=== PATIENT | female | born 1930 | race Caucasian/White ===

== ENCOUNTER 2019-06-16 16:37 | Emergency (ER) | payer MEDICARE, OTHER ==
[2019-06-16 16:56] VITALS: BP 142/71
[2019-06-16] MEDS ORDERED: IV NORMAL SALINE 500ML 500 ML IV ONE (17:00)
--- NOTE | 2019-06-16 17:07 | PHYS DOC ---
Past History Past Medical History: Cancer, Dementia (Questionable) Additional Past Medical Histor: Peripheral edema (AMOR ADRIAN DO) Past Surgical History: Colectomy Additional Past Surgical Histo: Cancer surgery (AMOR ADRIAN DO) Smoking: Non-smoker Alcohol Use: None Drug Use: None (AMOR ADRIAN DO) Adult General Chief Complaint Chief Complaint: MULTIPLE COMPLAINTS HPI HPI 88-year-old female presents with altered mental status and increased lower extremity swelling. Over the last few days she has been more forgetful than usual. She is a little more confused according to her daughter. He states swe lling of her lower extremities. She is taking Lasix but the swelling seems to be worse. 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 She denies fever or chills. She has had any recent medication changes. She is eating and drinking. (AMAYA PANIAGUA DO) Review of Systems Review of Systems Constitutional: Denies fever or chills [] Eyes: Denies change in visual acuity, redness, or eye pain [] HENT: Denies nasal congestion or sore throat [] Respiratory: Denies cough or shortness of breath [] Cardiovascular: No additional information not addressed in HPI [] GI: Denies abdominal pain, nausea, vomiting, bloody stools or diarrhea [] : Denies dysuria or hematuria [] Musculoskeletal: Denies back pain or joint pain [] Integument: Denies rash or skin lesions [] Neurologic: Denies headache, focal weakness or sensory changes [] Endocrine: Denies polyuria or polydipsia [] All other systems were reviewed and found to be within normal limits, except as documented in this note. (AMAYA PANIAGUA DO) Current Medications Current Medications Current Medications Medications (Trade) Dose Ordered Sig/Shania Start Time Stop Time Status Last Admin Dose Admin Sodium Chloride 500 ml @ 0 mls/hr 1X ONCE 06/16/19 17:00 06/16/19 17:01 UNV (AMAYA PANIAGUA DO) Physical Exam Physical Exam Constitutional: Well developed, well nourished, no acute distress, non-toxic appearance. [] HENT: Normocephalic, atraumatic, bilateral external ears normal, oropharynx moist, no oral exudates, nose normal. Hard of hearing.[] Eyes: PERRLA, EOMI, conjunctiva normal, no discharge. Swollen inferior right eyelid.[] Neck: Normal range of motion, no tenderness, supple, no stridor. [] Cardiovascular:Heart rate regular rhythm, no murmur [] Lungs & Thorax: Bilateral breath sounds clear to auscultation [] Abdomen: Bowel sounds normal, soft, no tenderness, no masses, no pulsatile masses. [] Skin: Warm, dry, no erythema, no rash. [] Back: No tenderness, no CVA tenderness. [] Extremities: No tenderness, no cyanosis, no clubbing, ROM intact, no edema. [] Neurologic: Alert and oriented X 3, normal motor function, normal sensory function, no focal deficits noted. [] Psychologic: Affect normal, judgement normal, mood normal. [] (AMAYA PANIAGUA DO) Physical Exam Constitutional: Well developed, well nourished, no acute distress, non-toxic appearance HENT: Normocephalic, atraumatic, oropharynx moist Eyes: PERRL, EOMI, conjunctiva normal, no discharge Neck: Normal range of motion, no tenderness, supple Cardiovascular: Heart rate normal, regular rhythm Lungs & Thorax: Bilateral breath sounds clear to auscultation, no wheezing Abdomen: Soft, no tenderness Skin: Warm, dry, no erythema, no rash Back: No tenderness, no CVA tenderness Extremities: No tenderness, ROM intact, 2+ edema to BLE Neurologic: Alert and oriented X 2 (confused to date), normal motor function, normal sensory function, no focal deficits noted (AMOR ADRIAN DO) EKG EKG Sinus rhythm, rate 81, normal axis, no ST elevations or depressions.[] (AMAYA PANIAGUA DO) Radiology/Procedures Radiology/Procedures [] Impressions: CT HEAD WO CONTRAST History: Altered mental status Comparison: None. Technique: Noncontrast CT imaging was performed of the head. Exposure: One or more of the following individualized dose reduction techniques were utilized for this examination: 1. Automated exposure control 2. Adjustment of the mA and/or kV according to patient size 3. Use of iterative reconstruction technique. Findings: No intracranial hemorrhage. No mass effect. Mild brain parenchymal volume loss. Mildly prominent lateral ventricles, likely related to central brain parenchymal volume loss. Extensive foci of decreased attenuation within the hemispheric white matter, most often due to chronic microvascular ischemia. Chronic right cerebellar small lacunar infarct. Intracranial atheromatous calcification. Imaged orbits are unremarkable. Imaged paranasal sinuses and mastoid air cells are clear. Impression: 1. No acute intracranial abnormality. 2. Sequela of chronic microvascular ischemia and brain parenchymal volume loss. 3. Small right cerebellar chronic lacunar infarct. Electronically signed by: Chinedu Paniagua DO (06/16/2019 5:35 PM) [facility] DICTATED AND SIGNED BY: CHINEDU PANIAGUA DO DATE: 06/16/191734 CC: AMAYA PANIAGUA DO; ALBARO KATHLEEN MD ~ (AMAYA PANIAGUA DO) Radiology/Procedures PROCEDURE: CT HEAD WO CONTRAST CT HEAD WO CONTRAST History: Altered mental status Comparison: None. Technique: Noncontrast CT imaging was performed of the head. Exposure: One or more of the following individualized dose reduction techniques were utilized for this examination: 1. Automated exposure control 2. Adjustment of the mA and/or kV according to patient size 3. Use of iterative reconstruction technique. Findings: No intracranial hemorrhage. No mass effect. Mild brain parenchymal volume loss. Mildly prominent lateral ventricles, likely related to central brain parenchymal volume loss. Extensive foci of decreased attenuation within the hemispheric white matter, most often due to chronic microvascular ischemia. Chronic right cerebellar small lacunar infarct. Intracranial atheromatous calcification. Imaged orbits are unremarkable. Imaged paranasal sinuses and mastoid air cells are clear. Impression: 1. No acute intracranial abnormality. 2. Sequela of chronic microvascular ischemia and brain parenchymal volume loss. 3. Small right cerebellar chronic lacunar infarct. Electronically signed by: Chinedu Paniagua DO (06/16/2019 5:35 PM) [facility] PROCEDURE: CHEST AP ONLY Single view chest dated 06/16/2019. No comparison available. CLINICAL INDICATION: Altered mental status. FINDINGS: Single upright portable exam performed. Heart and mediastinal contours are within normal limits. Lungs are somewhat hyperinflated. No consolidation or pleural effusion. No pneumothorax. Minimal patchy left basilar opacity, likely atelectasis. IMPRESSION: No acute radiographic abnormality. Electronically signed by: Amor Freeman MD (06/16/2019 5:32 PM) [facility] (AMOR ADRIAN DO) Course & Med Decision Making Course & Med Decision Making Pertinent Labs and Imaging studies reviewed. (See chart for details) Patient's head CT is negative for acute findings. Her chest x-ray is negative for acute findings. Her labs and urinalysis are pending. I'm signing the patient out to Dr. Adrian at 1800. He will follow-up and determine her final disposition. [] (AMAYA PANIAGUA DO) Course & Med Decision Making Sign out received from Dr. Mccarty for elderly patient with concern for weakness. EKG reviewed. CT head and CXR also reviewed. Labs pending at time of sign out. UA without signs of infection. Labs otherwise without significant abnormality. Discussed findings with patient and family. Family concerned that patient unable to care for self and home and not able to walk and get around by herself. Patient offered admission. Patient declines. Patient' ambulation assessed. Patient uses walker and was able to successfully ambulate out of room and down mae and back into room without difficulty. Patient stable for discharge with outpatient follow-up with PCP. Discussed findings and plan with patient and family, who acknowledge understanding and agreement. (AMOR ADRIAN DO) Dragon Disclaimer Dragon Disclaimer This electronic medical record was generated, in whole or in part, using a voice recognition dictation system. (AMAYA PANIAGUA DO) Departure Departure: Impression: Primary Impression: Weakness Additional Impression: Peripheral edema Disposition: HOME, SELF-CARE Condition: STABLE Referrals: ALBARO KATHLEEN MD (PCP) Patient Instructions: Peripheral Edema, Weakness, [id number] Problem Qualifiers AMAYA PANIAGUA DO Jun 16, 2019 17:07 AMOR ADRIAN DO Jun 16, 2019 20:09
--- NOTE | 2019-06-16 17:35 | RAD ---
Single view chest dated 06/16/2019. No comparison available. CLINICAL INDICATION: Altered mental status. FINDINGS: Single upright portable exam performed. Heart and mediastinal contours are within normal limits. Lungs are somewhat hyperinflated. No consolidation or pleural effusion. No pneumothorax. Minimal patchy left basilar opacity, likely atelectasis. IMPRESSION: No acute radiographic abnormality. Electronically signed by: Amor Freeman MD (06/16/2019 5:32 PM) [facility]
--- NOTE | 2019-06-16 17:38 | RAD ---
CT HEAD WO CONTRAST History: Altered mental status Comparison: None. Technique: Noncontrast CT imaging was performed of the head. Exposure: One or more of the following individualized dose reduction techniques were utilized for this examination: 1. Automated exposure control 2. Adjustment of the mA and/or kV according to patient size 3. Use of iterative reconstruction technique. Findings: No intracranial hemorrhage. No mass effect. Mild brain parenchymal volume loss. Mildly prominent lateral ventricles, likely related to central brain parenchymal volume loss. Extensive foci of decreased attenuation within the hemispheric white matter, most often due to chronic microvascular ischemia. Chronic right cerebellar small lacunar infarct. Intracranial atheromatous calcification. Imaged orbits are unremarkable. Imaged paranasal sinuses and mastoid air cells are clear. Impression: 1. No acute intracranial abnormality. 2. Sequela of chronic microvascular ischemia and brain parenchymal volume loss. 3. Small right cerebellar chronic lacunar infarct. Electronically signed by: Chinedu Paniagua DO (06/16/2019 5:35 PM) [id number]
[2019-06-16 17:51] LABS: BASO # 0.1 x10^3/uL (0.0-0.2); BASO % 1 % (0-3); EOS % 0 % (0-3); HEMATOCRIT 35.6 % (36.0-47.0); HEMOGLOBIN 11.3 g/dL (12.0-15.5); LYMPH # 1.4 x10^3/uL (1.0-4.8); LYMPH % 18 % (24-48); MEAN CORPUSCULAR HEMOGLOBIN 29 pg (25-35); MEAN CORPUSCULAR HGB CONC 32 g/dL (31-37); MEAN CORPUSCULAR VOLUME 90 fL (79-100); MONO # 1.4 x10^3/uL (0.0-1.1); MONO % 17 % (0-9); NEUT % 63 % (31-73); PLATELET COUNT 187 x10^3/uL (140-400); RED BLOOD COUNT 3.94 x10^6/uL (3.50-5.40); RED CELL DISTRIBUTION WIDTH 15.1 % (11.5-14.5); WHITE BLOOD COUNT 7.8 x10^3/uL (4.0-11.0)
[2019-06-16 18:06] LABS: ALBUMIN 2.5 g/dL (3.4-5.0); ALBUMIN/GLOBULIN RATIO 0.5 (1.0-1.7); CALCIUM 9.3 mg/dL (8.5-10.1); CREATININE 0.9 mg/dL (0.6-1.0); POTASSIUM 4.5 mmol/L (3.5-5.1); TOTAL BILIRUBIN 0.3 mg/dL (0.2-1.0); TOTAL PROTEIN 7.1 g/dL (6.4-8.2)
[2019-06-16 19:35] LABS: BACTERIA,URINE FEW /HPF (0-FEW); BILIRUBIN,URINE NEG (NEG); CLARITY,URINE CLEAR; COLOR,URINE STRAW; GLUCOSE,URINE NEG (NEG); NITRITE,URINE NEG (NEG); RBC,URINE RARE /HPF (0-2); SQUAMOUS EPITHELIAL CELL,UR FEW /LPF; UROBILINOGEN,URINE 0.2 mg/dL (0.2 mg/dL)
== END 2019-06-16 20:15 | disposition home or self-care (01) ==
LOC: ER 16:37
DX: R53.1 Weakness (principal); R60.0 Localized edema; R41.82 Altered mental status, unspecified
CPT/HCPCS: 36415; 70450; 71045; 80053; 81001; 83880; 85025; 87086; 96360; 96361; 99285; J7040